=== PATIENT | female | born 1940 | race Caucasian/White ===

== ENCOUNTER 2019-01-23 08:22 | Inpatient (IN) ==
--- NOTE | 2019-01-09 10:30 | PAT Medication Instructions ---
Medication Instructions Date of Service January 09, 2019 Home Medications acetaminophen [Tylenol] 650 mg PO Q6H PRN cholecalciferol (vitamin D3) 800 unit PO QAM docusate sodium 100 mg PO BID fexofenadine [Malini Allergy] 180 mg PO DAILY PRN naproxen sodium [Aleve] 440 mg PO QAM torsemide 20 mg PO QAM ASK your surgeon for instructions naproxen sodium [Aleve] 440 mg PO QAM DO NOT take the morning of surgery cholecalciferol (vitamin D3) 800 unit PO QAM docusate sodium 100 mg PO BID fexofenadine [Malini Allergy] 180 mg PO DAILY PRN torsemide 20 mg PO QAM Take morning of surgery With a small sip of water, OTHERWISE NOTHING TO EAT OR DRINK AFTER MIDNIGHT: acetaminophen [Tylenol] 650 mg PO Q6H PRN (if needed, may be taken up to four hours before surgery) Take evening before surgery acetaminophen [Tylenol] 650 mg PO Q6H PRN (if needed) docusate sodium 100 mg PO BID fexofenadine [Malini Allergy] 180 mg PO DAILY PRN (if needed) Other Notes If you have any questions please call us at [phone] or [phone] or [phone] or [phone]
--- NOTE | 2019-01-09 10:43 | Anesthesiology Consultation ---
Date of Service January 09, 2019 Assessment & Plan (1) Encounter for pre-operative examination: S/P R TKA 03/[address] Lo. SAB and AC block, no issues, pt olena well. Chart Review Chart Review: Acceptable Risk for Surgery and Patient seen in Pre Admission Testing Teaching & Discussion Instructed NPO after midnight before surgery, except medications with 15 cc of water. Medication instructions provided according to the PAT guidelines. History Surgery Operation Date: 01/23/19 12:30 Proposed Procedures p Left Total Knee Arthroplasty - Demetrius Lo MD Height/Weight Height: 4 ft 11 in Weight: 100.4 kg Allergies Allergy/AdvReac Type Severity Reaction Status Date / Time pseudoephedrine Allergy Unknown RASH Verified 01/07/19 10:51 Quinolones Allergy Unknown Rash Verified 01/07/19 10:51 Cephalosporins Allergy Rash Verified 01/07/19 10:53 Medications Home Medications Medication Instructions Recorded Confirmed Last Taken acetaminophen [Tylenol] 650 mg PO Q6H PRN 03/14/18 01/07/19 Unknown cholecalciferol (vitamin D3) 800 unit PO QAM 01/07/19 01/07/19 Unknown [Vitamin D3] docusate sodium 100 mg PO BID 01/07/19 01/07/19 Unknown fexofenadine [Malini Allergy] 180 mg PO DAILY PRN 01/07/19 01/07/19 Unknown naproxen sodium [Aleve] 440 mg PO QAM 01/07/19 01/07/19 Unknown torsemide 20 mg PO QAM 01/07/19 01/07/19 Unknown Past Medical History Medical History Dependent edema Wears compression stockings History of cellulitis LEFT LEG, 07/2018, now resolved. Morbid obesity Osteoarthritis Seasonal allergies Exercise / Class Metabolic Activity III < 4 Walking/Shop/Light housework (Denies CP or SOB with ambulation; mild SOB with stairs but does daily slowly.) Past Family History Family History Father Family hx of colon cancer Past Surgical History Surgical History History of bilateral tubal ligation History of cataract surgery History of colonoscopy History of tonsillectomy History of tooth extraction History of total knee replacement Done at [facility] 03/[address] Lo[address] SAB and AC block, no issues, pt olena well Past Anesthesia History No Hx of Anesthesia Complications and No Family Hx of Anesthesia Complications History of PONV No Hx of PONV and No Hx of Motion Sickness Social History Smoking Status: Never smoker Do You Dip or Chew Tobacco: No Hx Alcohol Use: No Hx Substance Use: No substance use type: does not use Review of Systems Pt denies any recent chest pain, shortness of breath, palpitations, cough, fever or URI. +heartburn occasionally Physical Exam Vital Signs BP: 158/85 (pt did not take diuretic yet today) P: 92bpm SPO2: 95% RA T: 97.9 F R: 12 Constitutional + morbidly obese ENMT Mouth: + dentures (upper plate); no dental restorations, no chipped teeth and no loose teeth Thyromental Distance: < 3.5 Finger Breadths (3) Mallampati Class: I Neck + short neck; neck extension not limited Respiratory normal respiratory effort Auscultation: lungs clear to auscultation bilaterally Cardiovascular Rate/Rhythm: regular rate and regular rhythm Heart Sounds: no murmur Vessels: no carotid bruit Extremities: + edema (B/L compression stockings) Testing Laboratory Results 01/09/19 10:52 01/09/19 10:52 PT 10.8 Seconds (9.0-12.0) 01/09/19 10:52 INR 1.1 (0.9-1.1) 01/09/19 10:52 APTT 25.3 Seconds (21.0-31.0) 01/09/19 10:52 Blood Type A Positive 01/09/19 10:52 Antibody Screen NEGATIVE 01/09/19 10:52 Electrocardiogram Date: 03/17/18 Findings: + NSR @ (70bpm) with sinus arrhythmia Chest X-Ray Date: 01/09/19 FINDINGS: Mild stable cardia megaly. Slight chronic interstitial prominence. Diaphragms are smooth. No focal infiltrate. IMPRESSION: Chronic change. No acute process.
--- NOTE | 2019-01-09 11:17 | XRay Report ---
XR chest Pre-admission PA/Lat CLINICAL HISTORY: pat preoperative evaluation COMPARISON STUDY: 02/25/2015 FINDINGS: Mild stable cardia megaly. Slight chronic interstitial prominence. Diaphragms are smooth. N o focal infiltrate. IMPRESSION: Chronic change. No acute process. The above report was generated using voice recognition software. It may contain grammatical, syntax or spelling errors. Electronically signed by: Christopher Grajeda M.D. 01/09/2019 11:16 AM
[2019-01-09 14:17] LABS: Basophils # (auto) 0.01 K/uL (0-0.2); Basophils % (auto) 0.1 %; Eosinophils # (auto) 0.23 K/uL (0-0.5); Hematocrit (blood only) 41.7 % (37-47); Hemoglobin 13.1 g/dL (12.0-16.0); Immature Granulocytes # (auto) 0.01 K/uL (0.00-0.02); Immature Granulocytes % (auto) 0.1 %; Lymphocytes # (auto) 1.47 K/uL (1.2-3.4); Lymphocytes % (auto) 19.1 %; Mean Corpuscular Hgb Conc 31.4 g/dL (32-36); Mean Corpuscular Volume 89.3 fL (80-100); Monocytes # (auto) 0.51 K/uL (0.11-0.59); Monocytes % (auto) 6.6 %; Neutrophils # (auto) 5.47 K/uL (1.4-6.5); Neutrophils % (auto) 71.1 %; Platelet Count 211 K/uL (130-400); RDW Coefficient of Variation 15.2 % (11.5-14.5); RDW Standard Deviation 48.9 fL (36.4-46.3); Red Blood Count 4.67 M/uL (4.2-5.4)
[2019-01-09 14:36] LABS: BUN Creatinine Ratio 20.5 (10-20); C Reactive Protein 0.92 mg/dl (0-0.29); Calcium 10.1 mg/dl (8.5-10.1); Creatinine Clr Calc Pharmacy 51.2 ml/min; Est GFR (African American) 67.7; Est GFR (Non-African American) 58.5; Potassium 3.5 mmol/L (3.5-5.1)
[2019-01-09 14:37] LABS: INR 1.1 (0.9-1.1); Partial Thromboplastin Ratio 0.9; Partial Thromboplastin Time 25.3 Seconds (21.0-31.0); Prothrombin Time 10.8 Seconds (9.0-12.0)
--- NOTE | 2019-01-17 20:11 | History and Physical Report ---
DATE OF ADMISSION: CHIEF COMPLAINT: Left knee pain, discomfort and instability. HISTORY OF PRESENT ILLNESS: This patient is a 78-year-old female who presents for surgical treatment of her left knee. She has got a long history of knee problems and underwent a right knee replacement back in 2014. She has continued to have persistent progressive pain and discomfort in her left knee. Actually, she was scheduled for knee replacement a year ago, but she had to cancel it due to some family issues. Pain has become more debilitating over the past year. It is global pain. She cannot walk on it all anymore. She does have chronic lymphedema in this leg and treated with compression stocking. She has had infections in the past, but nothing in the past 6 months. She really feels like she cannot go with her knee the way it is anymore. Medicines do not help her at all. She has had some shots in the past with minimal relief. PAST MEDICAL HISTORY: 1. Gastroesophageal reflux disease. 2. Hiatal hernia. 3. Chronic lymphedema of left lower extremity. PAST SURGICAL HISTORY: Includes right knee replaced on 04/08/2015. ALLERGIES: SUDAFED AND SULFA. ALSO APPARENT CEPHALEXIN ALLERGY. CURRENT MEDICINES: 1. Furosemide 20 mg once a day. 2. Stool softener. 3. Malini 600 mg. 4. Vitamin D3. 5. Aleve. SOCIAL HISTORY: This patient is a 78-year-old female. She is from [place]. Does not smoke. FAMILY HISTORY: Noncontributory. REVIEW OF SYSTEMS: Significant for lymphedema in her left lower extremity. No recent cellulitis. No diabetes. No chest pain or shortness of breath. No history of deep venous thrombosis or pulmonary embolism. PHYSICAL EXAMINATION: GENERAL: Reveals a pleasant middle-aged female who looks to be in reasonably good health. HEENT: Benign. NECK: Supple. No lymphadenopathy. LUNGS: Clear to auscultation. HEART: Has a regular rate and rhythm. ABDOMEN: Soft, nontender and nondistended. EXTREMITIES: Grossly neurovascularly intact except as follows: Examination of the left lower extremity reveals the patient walks with the use of a cane. She has got varus alignment to her knee with a varus thrust. She has got some chronic redness in her left lower extremity which looks benign from an infection standpoint. She does have some pitting edema. Range of motion of her knee is 10 degrees short of full extension and 100 degrees of flexion. No instability. No pain with hip motion. X-RAYS: X-ray of left knee reviewed. It shows advanced left knee DJD. She has got complete loss of medial joint space. She has got tibial femoral subluxation and subchondral sclerosis. X-rays of the tibia and fibula looked benign. No signs of bony infection. ASSESSMENT: This patient is a 78-year-old female status post right knee replacement with advanced left knee degenerative joint disease. Unfortunately, she has got chronic lymphedema in this left lower extremity. She has failed conservative treatment. She does not feel like she can keep going like she is going. She has no new infections in this leg in 6+ months. PLAN: We talked about treatment. We talked about the risks of knee replacement and she understands that the big risk is infection. We are going to proceed with the left knee replacement. We will put antibiotics in the cement to be able to the best we can prevent infection. She will also have to be very careful and vigilant about wearing a compression stocking. The risks and benefits of left total knee replacement were explained to the patient including but not limited to deep venous thrombosis, pulmonary embolism, , infection, neurological injury, vascular injury, bleeding problem, pain, limited range of motion, stiffness, failure to relieve her symptoms, incomplete relief of symptoms, failure of the surgery and need for further surgery in the future, etc. The patient understands and informed consent was obtained. We will place some antibiotics in her cement. She apparently does have some reaction to cephalosporins, so we will likely give her vancomycin preoperatively. She is hoping to be discharged to [facility] for a brief rehab stay after surgery. CHAR
[~2019-01-23 08:22] MED LIST: ACETAMINOPHEN 500 MG TAB PO SCH; BUPIVACAINE 0.5 % 5 MG/1 ML PF 10ML VIAL ONE; BUPIVACAINE LIPOSOME/PF 266 MG, BUPIVACAINE/EPINEPHRINE 50 ML, SODIUM CHLORIDE 0.9% 30 ... INFIL SCH; CEFAZOLIN 2000MG 2,000 MG/15 ML SYR IV SCH; FAMOTIDINE 20 MG TAB PO SCH; GABAPENTIN 300 MG CAP PO SCH; LR 500ML BOLUS, THEN 15ML/HR IV SCH; LR 60ML/HR IV SCH; METOCLOPRAMIDE HCL 10 MG TABLET PO SCH; ROPIVACAINE 0.5% 5 MG/ML 30 ML VIAL ONE; TRANEXAMIC ACID 1,000 MG **IV Pre-op IV SCH; VANCOMYCIN HCL 1,500 MG in SODIUM CHLORIDE 0.9% 500 ML IV SCH
--- NOTE | 2019-01-23 08:46 | History & Physical Bridge Note ---
Date of Service January 23, 2019 History & Physical Bridge Note I have examined the patient, reviewed the History & Physical and in the interval since the performance of the History & Physical I have noted the following changes of clinical significance: no changes noted
[2019-01-23] MEDS ORDERED: LIDOCAINE HCL 2% 2 ML VIAL/AMP(20MG/ML) INFIL ONE (10:11)
[2019-01-23] MEDS ORDERED: PROPOFOL IV EMULSION 10 MG/ML 20 ML VIAL IV ONE (10:11)
[2019-01-23] MEDS ORDERED: MIDAZOLAM HCL 1 MG/ML 2ML VIAL ONE (10:11)
[2019-01-23] MEDS ORDERED: fentaNYL citrate 100 MCG/2 ML VIAL ONE (10:12)
[2019-01-23] MEDS ORDERED: ATROPINE SULFATE 0.1 MG/ML 10ML SYR IV PRN (10:25)
[2019-01-23] MEDS ORDERED: ePHEDrine sulfate 50 MG/ML AMP IV PRN (10:25)
[2019-01-23] MEDS ORDERED: BUPIVACAINE LIPOSOME 1.3% 266 MG/20 ML VIAL ONE (10:39)
[2019-01-23] MEDS ORDERED: EPINEPHrine INJ 1 MG/ML AMP ONE (10:39)
[2019-01-23] MEDS ORDERED: SODIUM CHLORIDE 0.9% PF 50 ML VIAL ONE (10:39)
[2019-01-23] MEDS ORDERED: BACITRACIN INJ 50,000 UNIT VIAL ONE (10:39)
[2019-01-23] MEDS ORDERED: BUPIVACAINE 0.25% 30 ML VIAL ONE (10:40)
[2019-01-23] MEDS ORDERED: VANCOMYCIN HCL 1000MG/20ML VIAL ONE (10:40)
--- NOTE | 2019-01-23 12:49 | Post Operative Brief Note ---
Immediate Post Op Note v1 Date of Surgery January 23, 2019 Pre & Post Diagnosis Operation Date: 01/23/19 10:40 Pre-Op Diagnosis: Left Knee Degenerative Joint Disease w/knee pain Post-Op Diagnosis: Left Knee Degenerative Joint Disease w/knee pain Procedure Operation Date: 01/23/19 10:40 Actual Procedures p Left Total Knee Arthroplasty(Left) - Demetrius Lo MD Surgeon Demetrius Lo MD Chronic Disease Manager Krishan, PAC Estimated Blood Loss 50 Findings Consistent with Post-Op Diagnosis Fluids 600 cc Specimens Left Knee Drains Reynolds Catheter (16 kinyarwanda 10ml balloon) Anesthesia Type Spinal MAC Complications none Disposition Accompanied Patient To Recovery: No Disposition: Recovery Room
--- NOTE | 2019-01-23 13:21 | XRay Report ---
XR knee LT 2V routine CLINICAL HISTORY: Surgical Post Op COMPARISON: None. DISCUSSION: There are postsurgical changes of a total left knee arthroplasty and patellar resurfacing . The femoral and tibial components appear well seated. No fractures or dislocations are visualized. There is air within the soft tissues consistent with recent surgery. There are overlying skin everett . IMPRESSION: Postsurgical changes of a total left knee arthroplasty Electronically signed by: Derick Schulte M.D. 01/23/2019 1:19 PM
--- NOTE | 2019-01-23 13:55 | Anesthesiology Progress Note ---
Date of Service January 23, 2019 Anesthesia Post Procedure Vital Signs Vital Signs: Temp Pulse Pulse Resp BP Pulse Ox 01/23/19 13:45 72 17 125/62 95 01/23/19 13:35 36.7 C 75 13 115/69 99 01/23/19 13:25 73 14 132/64 99 01/23/19 13:15 74 14 147/69 H 100 01/23/19 13:05 74 12 104/71 100 01/23/19 12:55 36.2 C L 82 14 112/54 L 100 01/23/19 09:03 36.4 C L 96 H 20 174/97 H 96 Pain Intensity Left Knee: Pain Intensity: 0 Transfer of Care Handoff Completed per policy Notes Mental Status: alert / awake / arousable and participated in evaluation Patient Amnestic to Procedure: Yes Nausea / Vomiting: adequately controlled Pain: adequately controlled Airway Patency, RR, SpO2: stable & adequate BP & HR: stable & adequate Hydration State: stable & adequate Neuraxial Anesthesia: was administered and sensory block is resolving Anesthetic Complications: no major complications apparent
[2019-01-23] MEDS: SODIUM CHLORIDE 0.9% 1000ML 1,000 ML IV SCH (14:15)
[2019-01-23] MEDS ORDERED: BISACODYL 10 MG SUPP PR PRN (14:16)
[2019-01-23] MEDS ORDERED: TRAMADOL HCL 50 MG TABLET PO PRN (14:16)
[2019-01-23] MEDS ORDERED: VANCOMYCIN CONSULT ACTIVE PRN (14:16)
[2019-01-23] MEDS ORDERED: METOCLOPRAMIDE HCL INJ 5 MG/ML 2 ML VIAL IV PRN (14:16)
[2019-01-23] MEDS ORDERED: HYDROmorphone INJ 0.5 MG/0.5 ML SYR IV PRN (14:16)
[2019-01-23] MEDS ORDERED: ONDANSETRON INJ 2 MG/ML 2 ML VIAL IV PRN (14:16)
[2019-01-23] MEDS ORDERED: MAGNESIUM HYDROXIDE SUSP 30 ML UDC PO PRN (14:16)
[2019-01-23] MEDS ORDERED: VANCOMYCIN HCL 1,500 MG in SODIUM CHLORIDE 0.9% 250 ML IV SCH (14:16)
[2019-01-23] MEDS ORDERED: FEXOFENADINE HCL 180 MG TAB PO PRN (14:16)
[2019-01-23] MEDS ORDERED: ALUMINUM/MAGNESIUM SUSP 30 ML UDC PO PRN (14:16)
[2019-01-23] MEDS ORDERED: NALOXONE HCL 0.4 MG/1 ML VIAL/CARP IV PRN (14:16)
[2019-01-23] MEDS: [UNRECOGNIZED DRUG - REMARK] SCH ×2 (14:44→14:59)
[2019-01-23] MEDS: ACETAMINOPHEN 500 MG TAB PO SCH ×2 (14:47→21:21)
[2019-01-23] MEDS: KETOROLAC TROMETHAMINE 15 MG/ML VIAL IV SCH ×2 (14:47→21:11)
[2019-01-23] MEDS: FERROUS GLUCONATE 324 MG TAB PO SCH (17:44)
--- NOTE | 2019-01-23 17:51 | Operative Report ---
DATE OF OPERATION: 01/23/2019 SURGEON: Demetrius Lo MD. SMALL PRODUCTS ASSEMBLER: INDIO Lamb. PREOPERATIVE DIAGNOSIS: Left knee degenerative joint disease. POSTOPERATIVE DIAGNOSIS: Left knee degenerative joint disease. PROCEDURE PERFORMED: Left cemented posterior stabilized total knee arthroplasty. COMPLICATIONS: None. ESTIMATED BLOOD LOSS: 50 mL. FLUID REPLACEMENT: 600 mL of fluid. TOURNIQUET TIME: 62 minutes at 300 mmHg. ANESTHESIA: Spinal with an adductor canal block. DRAINS: None. SPECIMENS: Left knee sent for pathology. OPERATIVE INDICATIONS: The patient is a 78-year-old female who has had a long history of knee problems and knee arthritis. She underwent a right knee replacement several years ago and has done well from this. She had actually scheduled replacement of her left knee several times, but had to cancel due to family issues. Pain has become debilitating. She does have a history of chronic lymphedema in this side. Has not any infections in 6 months. Despite the significant risk, the patient understood and wanted to proceed with knee replacement as she was having trouble even getting around. OPERATIVE FINDINGS: Advanced grade 4 [id number] disease in all 3 compartments. She had about a 10-degree flexion contracture and only about 100 degrees of knee flexion. OPERATIVE IMPLANTS: Operative implants consisted of: 1. Biomet Vanguard size 65 left posterior stabilized femoral component. 2. A Biomet size 71 tibial tray. 3. A 12 mm posterior stabilized polyethylene insert. 4. A 31 x 8 all poly patella. OPERATIVE PROCEDURE: The patient was taken to the Operating Room, identified and placed on the operating table in supine position. All contact areas were appropriately padded. IV antibiotics were provided by Anesthesia team. A spinal anesthetic and adductor canal block had been provided in the holding area. Reynolds catheter was placed in sterile fashion. Left thigh tourniquet was then placed and left lower extremity was then prepped and draped in usual sterile fashion. Left leg was elevated and exsanguinated with Esmarch and tourniquet was placed at 300 mmHg. An anterior approach of left knee was then performed through a longitudinal incision centered over the patella. Sharp dissection was carried through subcutaneous tissue down below the extensor mechanism. A medial parapatellar arthrotomy incision was made. Some subperiosteal dissection was carried out medially. I did a pretty extensive medial and posteromedial dissection due to her varus deformity and flexion contracture. The patella was subluxated laterally. The lateral patellofemoral ligament was released. The knee was flexed. The osteophytes were taken off the distal femur. The ACL and PCL were then released from its distal femur and the tibia subluxated anteriorly. The external tibial alignment jig was then placed in the anterior face of the tibia and adjusted 16 mm medially. Proximal tibial cut was made essentially flushed with the most deficient aspect of the posteromedial tibial plateau. Some osteophytes were taken off medial and posteromedially. Tibia sized to a size 71. Attention was then drawn to the femur. The distal femur was entered with a sharp drill bit. Intramedullary canal was suctioned. A right 5-degree valgus cutting guide was placed. Distal femoral cutting block was pinned in place. Distal femoral cut was made to take an additional 3 mm of bone off the distal femur. The femur was then sized to a size 65. We did downsize this almost an entire size due to the narrow medial/lateral dimensions of the femur. The AP cutting block was pinned parallel to the epicondylar axis, which was 5 degrees of external rotation. The anterior cut, anterior chamfer cut, posterior cut, posterior chamfer cuts were made. Box cutting guide was placed and adjusted slightly lateral and box cut was made. The knee was flexed. The remnants of medial and lateral menisci were excised. The osteophytes were taken off the posterior aspect of the femur. Trial femoral component was placed. Tibial tray was pinned in maximum external rotation and the drill and stem punch were used to create defect in proximal tibia for the tibial tray. The knee was then trialed and the 12 mm insert fit most appropriately. Attention was then drawn to the patella. The patella was cleaned of all soft tissues. Patella thickness measured 22 mm in thickness, was cut down to 13. It was sized to a size 31 patella. Lug holes were drilled for 31 patella. Lateral osteophyte was removed. Patella button was placed. Knee was taken through range of motion and patella tracked nicely with no thumbs test. Attention was then drawn toward placement of permanent components. All trial components were removed. A bone plug was placed in the distal femur to limit blood loss. A double batch of Palacos G cement was mixed. A Biomet Vanguard size 65 left posterior stabilized femoral component, Biomet size 71 tibial tray, 12 mm posterior stabilized polyethylene insert, and a 31 x 8 all poly patella were then cemented in place. Knee was brought out into full extension until cement hardened. A final cement check was then performed. Pericapsular tissues were injected with a total of 100 mL of a combination of 20 mL of Exparel, 30 mL of normal saline, 50 mL of 0.25% Marcaine with epinephrine. The patient did receive 1 gram of tranexamic acid. The tourniquet was then let down for final tourniquet time of 62 minutes. Hemostasis was assured using electrocautery. The extensor mechanism was then closed with a combination of #1 PDS suture and #1 Vicryl suture in a [id number] fashion. Extensor mechanism was checked and found to be intact. The subcutaneous tissue was then closed with 2 Dexon suture in a buried interrupted fashion. Skin was closed with skin everett. Leg was then cleaned and dried and a sterile dressing of Xeroform, 4 x 4's, sterile cast padding and Moody bandage were applied. The patient then transferred to the Recovery Room in stable condition. The patient tolerated the procedure well with no complications. All needle and sponge counts were correct at the end of the operation. I attest to the content of the Intraoperative Record and any orders documented therein. Any exception s are noted below.
--- NOTE | 2019-01-23 18:04 | Progress Note ---
DATE: 01/23/2019 SUBJECTIVE: A 78-year-old white female postop from a left knee replacement. She has done well. Not having any pain yet. No chest pain or shortness of breath. Not feeling dizzy or lightheaded. OBJECTIVE: VITAL SIGNS: Temperature 36.4. Vital signs stable. GENERAL: Reveals a pleasant elderly female. She is sitting up in bed, eating her lunch and talking to the family. EXTREMITIES: Examination of the left leg reveals the leg to be well aligned. Dressing is clean, dry and intact. She can dorsiflex and plantarflex her foot appropriately. NEUROLOGICAL: Intact. X-RAYS: X-rays of the left knee from Recovery Room were reviewed. It shows a cemented posterior stabilized total knee arthroplasty. Components looked to be in good position. No signs of problems. ASSESSMENT: A 78-year-old white female postop from a left knee replacement, doing pretty well. Her pain is controlled. She is neurologically intact. She does have this lymphedema issue and we are going to need to really control her swelling. PLAN: 1. DVT prophylaxis including thigh-high TEDs, SCDs, and aspirin twice a day. 2. PT/OT. Weight bear as tolerated. Left total knee protocol. 3. Pain control, doing well with current pain regimen. 4. IV antibiotics x24 hours. 5. Swelling control. We will use JUSTINE stockings to try and limit swelling and decrease the risk of further lymphedema. 6. Disposition: She is hoping to be discharged to [facility] for rehab stay similar to what she did several years ago.
[2019-01-23] MEDS ORDERED: TRANEXAMIC ACID 1,000 MG in 0.9 % SODIUM CHLORIDE 100 ML IV SCH (19:00)
[2019-01-23] MEDS ORDERED: VANCOMYCIN HCL 1,500 MG in SODIUM CHLORIDE 0.9% 500 ML IV SCH (21:00)
[2019-01-23] MEDS ORDERED: NON-FORMULARY MEDICATION (Docusate Sodium 100 MG) PO SCH (21:00)
[2019-01-23] MEDS: SENNA 8.6 MG TAB PO SCH (21:11)
[2019-01-23] MEDS: ASPIRIN 81 MG ECTAB PO SCH (21:11)
[2019-01-23] MEDS: DOCUSATE SODIUM 100 MG CAP PO SCH (21:11)
[2019-01-23] MEDS ORDERED: Nursing to Pharmacy Communication ONE (23:19)
[2019-01-24] MEDS: KETOROLAC TROMETHAMINE 15 MG/ML VIAL IV SCH ×4 (03:25→20:24)
[2019-01-24] MEDS: SODIUM CHLORIDE 0.9% 1000ML 1,000 ML IV SCH (03:41)
[2019-01-24 05:43] LABS: Hematocrit (blood only) 36.6 % (37-47); Hemoglobin 11.4 g/dL (12.0-16.0); Mean Corpuscular Hgb Conc 31.1 g/dL (32-36); Mean Corpuscular Volume 91.7 fL (80-100); Mean Platelet Volume 10.3 fL (7.4-10.4); Platelet Count 147 K/uL (130-400); RDW Coefficient of Variation 15.2 % (11.5-14.5); RDW Standard Deviation 51.9 fL (36.4-46.3); Red Blood Count 3.99 M/uL (4.2-5.4); White Blood Count 7.87 K/uL (4.8-10.8)
[2019-01-24] MEDS: ACETAMINOPHEN 500 MG TAB PO SCH ×3 (05:43→20:25)
[2019-01-24] MEDS: TORSEMIDE 20 MG TAB PO SCH (05:44)
[2019-01-24 06:13] LABS: BUN Creatinine Ratio 19.6 (10-20); Calcium 7.6 mg/dl (8.5-10.1); Creatinine Clr Calc Pharmacy 50.1 ml/min; Est GFR (African American) 67.7; Est GFR (Non-African American) 58.5; Potassium 3.2 mmol/L (3.5-5.1)
[2019-01-24] MEDS ORDERED: POTASSIUM CHLORIDE 20 MEQ TABCR PO ONE ×2 (08:30→15:00)
--- NOTE | 2019-01-24 08:30 | Progress Note ---
DATE: 01/24/2019 SUBJECTIVE: A 78-year-old white female postop day 1 from a left knee replacement. She is doing well. She says she has not had any pain at all. No chest pain or shortness of breath. Not feeling dizzy or lightheaded. OBJECTIVE: VITAL SIGNS: Temperature 36.9. Vital signs are stable. PHYSICAL EXAMINATION: GENERAL: Reveals a pleasant elderly female. She is lying in bed, looks comfortable. EXTREMITIES: Examination of the left leg reveals the leg to be well aligned. Dressing is clean, dry and intact. She can dorsiflex and plantarflex her foot appropriately. She is neurologically intact. LABORATORIES: Hemoglobin 11.4. Hematocrit 36.6. Electrolytes are stable. Potassium is just a little bit low at 3.2. ASSESSMENT: A 78-year-old white female postoperative day 1 from left knee replacement, doing well. Pain is controlled. She is neurologically intact. Potassium is low, and we will supplement that. PLAN: 1. DVT prophylaxis including thigh-high TEDs, SCDs, and aspirin twice a day. 2. PT/OT. Weight bear as tolerated. Left total knee protocol. 3. Pain control, doing well with current pain regimen. 4. Hypokalemia. We will supplement her potassium. 5. Disposition: Plan to discharge to rehab once accepted and approved. We will get outreach and education social worker working on that this morning.
[2019-01-24] MEDS: DOCUSATE SODIUM 100 MG CAP PO SCH ×2 (08:39→20:24)
[2019-01-24] MEDS: ASPIRIN 81 MG ECTAB PO SCH ×2 (08:39→20:25)
[2019-01-24] MEDS: FERROUS GLUCONATE 324 MG TAB PO SCH ×2 (08:39→17:48)
[2019-01-24] MEDS: CHOLECALCIFEROL (VITAMIN D) 400 UNITS TABLET PO SCH (08:39)
[2019-01-24] MEDS: MULTIVITAMIN TAB PO SCH (08:39)
[2019-01-24] MEDS ORDERED: TORSEMIDE 20 MG TAB PO SCH (09:00)
--- NOTE | 2019-01-24 10:15 | Anesthesiology Progress Note ---
Date of Service January 24, 2019 Anesthesia Post Procedure Vital Signs Vital Signs: Temp Pulse Pulse Pulse Pulse Resp BP 01/24/19 07:19 36.9 C 80 18 138/83 01/24/19 02:44 36.4 C L 81 16 146/79 H 01/23/19 23:54 36.5 C 75 16 147/76 H 01/23/19 19:00 36.5 C 73 16 143/83 H 01/23/19 17:15 36.4 C L 63 16 106/64 01/23/19 16:16 36.4 C L 65 16 109/70 01/23/19 15:18 36.4 C L 69 18 148/78 H 01/23/19 14:44 36.6 C 76 20 123/81 01/23/19 14:16 36.5 C 71 16 116/69 01/23/19 13:55 71 18 137/66 01/23/19 13:45 72 17 125/62 01/23/19 13:35 36.7 C 75 13 115/69 01/23/19 13:25 73 14 132/64 01/23/19 13:15 74 14 147/69 H 01/23/19 13:05 74 12 104/71 01/23/19 12:55 36.2 C L 82 14 112/54 L Pulse Ox 01/24/19 07:19 93 01/24/19 02:44 98 01/23/19 23:54 98 01/23/19 19:00 100 01/23/19 17:15 98 01/23/19 16:16 99 01/23/19 15:18 100 01/23/19 14:44 100 01/23/19 14:16 95 01/23/19 13:55 94 01/23/19 13:45 95 01/23/19 13:35 99 01/23/19 13:25 99 01/23/19 13:15 100 01/23/19 13:05 100 01/23/19 12:55 100 Pain Intensity Left Knee: Pain Intensity: 0 Transfer of Care Handoff Completed per policy Notes Mental Status: alert / awake / arousable Patient Amnestic to Procedure: Yes Nausea / Vomiting: adequately controlled Pain: adequately controlled Airway Patency, RR, SpO2: stable & adequate BP & HR: stable & adequate Hydration State: stable & adequate Neuraxial Anesthesia: was administered and sensory block resolved Anesthetic Complications: no major complications apparent and Pt Satisfied with anesthetic care
[2019-01-24] MEDS: SENNA 8.6 MG TAB PO SCH (20:24)
[2019-01-25] MEDS: KETOROLAC TROMETHAMINE 15 MG/ML VIAL IV SCH ×2 (03:30→09:21)
[2019-01-25] MEDS: ACETAMINOPHEN 500 MG TAB PO SCH (05:04)
[2019-01-25] MEDS: TORSEMIDE 20 MG TAB PO SCH (05:04)
[2019-01-25] MEDS: ASPIRIN 81 MG ECTAB PO SCH (09:22)
[2019-01-25] MEDS: FERROUS GLUCONATE 324 MG TAB PO SCH (09:22)
[2019-01-25] MEDS: MULTIVITAMIN TAB PO SCH (09:22)
[2019-01-25] MEDS: CHOLECALCIFEROL (VITAMIN D) 400 UNITS TABLET PO SCH (09:22)
[2019-01-25] MEDS: DOCUSATE SODIUM 100 MG CAP PO SCH (09:22)
--- NOTE | 2019-01-25 09:23 | Orthopedic Progress Note ---
Date of Service January 25, 2019 Assessment & Plan (1) Localized osteoarthritis of left knee: Overall she is doing very well. She is not having much pain in the left knee. She is been ambulating well with physical therapy. She is orthopedically stable for discharge to home later this morning. Pain medications have already been written. She will follow-up with Dr. Lo in 2 weeks. Present on Admission?: Yes Subjective Kati was seen and examined at bedside today. She just finished with physical therapy. She is doing very well. She is not having much pain in the left knee. She is happy with her progress. She has no complaints. Physical Exam Musculoskeletal: On physical examination of the left knee, the dressing has been removed and the incision is open to air. Incision looks good without any drainage. Results & Data Vital Signs (Past 12 Hours) Vital Signs Temp Pulse Resp BP Pulse Ox 01/25/19 07:08 36.8 C 93 H 17 143/83 H 94 01/25/19 05:46 36.6 C 107 H 16 157/78 H 93 01/24/19 23:00 37.4 C 94 H 16 128/73 93
--- NOTE | 2019-01-28 09:25 | Discharge Summary ---
ADMITTING PHYSICIAN AND SURGEON: Demetrius Lo MD ADMITTING DIAGNOSIS: Left knee degenerative joint disease. SURGERY PERFORMED: Left total knee arthroplasty. SECONDARY DIAGNOSES: Gastroesophageal reflux disease, hiatal hernia, chronic lymphedema of the left lower extremity. CONSULTS: None obtained. HISTORY AND PHYSICAL EXAMINATION: Well documented in the patient's chart. HOSPITAL COURSE: The patient was admitted on 01/23/2019, underwent left total knee arthroplasty and tolerated the procedure well. There were no complications. She was transferred to the PACU postoperatively and later to the orthopedic floor for further care. She was given vancomycin for antibiotic prophylaxis, JUSTINE stockings, SCDs and aspirin for DVT prophylaxis. Hemoglobin, hematocrit and vital signs were monitored during her hospital stay and remained stable. She did not require any blood transfusions. There were no complications. By postoperative day 2, she was tolerating regular diet, pain was controlled with oral pain medicine. She was participating in physical therapy. On postop day 2, she was transferred to rehab facility. She was given printed discharge instructions as well as new prescriptions for extra-strength Tylenol, aspirin, iron supplement and tramadol. Continue her home medicines. Continue physical therapy, weightbearing as tolerated, JUSTINE stockings. Follow up approximately 2 weeks postop or sooner if there are any problems or concerns. [facility]
== END 2019-01-25 13:55 | DRG 470 ==
LOC: ASU 08:22 → 3E 12:53 → 3N 01-24 13:46